=== PATIENT | female | born 1990 | race Caucasian/White ===

== ENCOUNTER 2017-11-27 19:30 | Inpatient (IN) | payer OTHER ==
[2017-11-27] MEDS ORDERED: HALOPERIDOL LACT 5 MG/ML INJ ONE (20:02)
[2017-11-27] MEDS ORDERED: LORazepam 2 MG/ML INJ ONE (20:07)
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
[2017-11-27] MEDS ORDERED: HALOPERIDOL LACT 5 MG/ML INJ IVP ONE ×3 (20:22→20:58)
[2017-11-27] MEDS ORDERED: LORazepam 2 MG/ML INJ IVP ONE ×2 (20:23→20:54)
[2017-11-27 20:25] LABS: PLATELET COUNT 271 10^3/uL (150-400)
[2017-11-27] MEDS ORDERED: KETAMINE 200 MG/20 ML VIAL IVP ONE (21:39)
[2017-11-27] MEDS ORDERED: KETAMINE 500 MG/10 ML VIAL IVP ONE (22:30)
[2017-11-27] MEDS ORDERED: ONDANSETRON 4 MG/2 ML VIAL IVP PRN (23:46)
[2017-11-27] MEDS ORDERED: ONDANSETRON DISINTEGRATING 4 MG TAB PO PRN (23:46)
[2017-11-28] MEDS ORDERED: ACYCLOVIR 600 MG in D5W 100 ML IV ONE (00:04)
[2017-11-28] MEDS ORDERED: NS 500 ML IV PRN (00:58)
[2017-11-28] MEDS: DEXMEDETOMIDINE IN 0.9 % NACL 100 ML IV SCH ×3 (01:47→18:33)
[2017-11-28] MEDS ORDERED: LORazepam 2 MG/ML INJ ONE (02:03)
[2017-11-28] MEDS ORDERED: HALOPERIDOL LACT 5 MG/ML INJ ONE (02:03)
--- NOTE | 2017-11-28 02:47 | PDGENHP ---
History and Physical - Chief Complaint Agitation - History of Present Illness 27 yo F w/ hx of migraines p/w severe agitation. Patient was in [place] with her mother when she began to experience unusual symptoms. On Thursday 11/16 she developed L arm tingling. This was followed by visual disturbances, severe headache, and photophobia. She presented to a local hospital where she was diagnosed with migraines. She has had migraines since a young age, but her usual migraines are much more mild and usually resolve with ibuprofen, per her mother. She had recurrence of the same constellation of symptoms (arm tingling, visual disturbance (aura?), severe headache, and photophobia on 11/20 and again went to a local hospital. There she underwent a CT scan and neurologist evaluation, who again diagnosed migraines. Over the following few days similar symptoms waxed and waned until she returned to the [place] yesterday evening. This morning her parents state she woke up doing well and was her usual self. They deny any mood abnormality, thought disturbance, or hallucinations. In the afternoon she began to have the same cluster of symptoms (arm tingling, aura, headache, photophobia). On the way to the hospital, however, she developed severe agitation. Patient was so agitated that she required Haldol 15 mg IV, Ketamine 200 mg IV, and Lorazepam 3 mg IV to control her aggression. Patient was minimally responsive to outside stimuli during this period. Her parents deny any recent illness or sick contacts. They also deny new medications(aside from sumatriptan prescribed in [place]) and knowledge of any drug use. She has had no prior episodes in the past. History Information - Allergies/Home Medication List Allergies/Adverse Reactions: No Known Allergies Allergy (Verified 11/27/17 23:11) Home Medications: Cyclizine 11/28/17 [Last Taken Unknown] Dihydrocodeine 11/28/17 [Last Taken Unknown] Naproxen 11/28/17 [Last Taken Unknown] Omeprazole 11/28/17 [Last Taken Unknown] Paracetamol 11/28/17 [Last Taken Unknown] SUMAtriptan 11/28/17 [Last Taken Unknown] I have personally reviewed and updated: family history, medical history - Past Medical History migraines - Surgical History Reports: no pertinent surgical hx - Family History Additional family history: Migraines in mother and sister - Social History Smoking Status: Never smoked Review of Systems Review of Systems: ROS: 10pt was reviewed & negative except for what was stated in HPI & below Physical Exam Physical Exam: Temp Pulse Resp BP Pulse Ox 36.7 C 82 16 110/70 92 11/27/17 19:54 11/28/17 00:00 11/28/17 00:00 11/28/17 00:00 11/28/17 00:00 Constitutional: appears nourished, other (Sedated, intermittend bouts of agitation) Eyes: PERRL, anicteric sclera Ears, Nose, Mouth, Throat: moist mucous membranes, no oral mucosal ulcers Cardiovascular: no murmur, rub, or gallop, tachycardia Respiratory: no respiratory distress, clear to auscultation Gastrointestinal: normoactive bowel sounds, soft, non-tender abdomen Skin: warm, normal color Musculoskeletal: full muscle strength, no joint effusions Neurologic: other (Sedated, intermittently agitated), No weakness Psychiatric: encephalopathic, agitated Lab Data & Imaging Review 11/27/17 20:14 11/27/17 20:14 WBC 8.09 10^3/uL (3.80-9.50) 11/27/17 20:14 RBC 4.94 10^6/uL (4.18-5.33) 11/27/17 20:14 Hgb 15.5 g/dL (12.6-16.3) 11/27/17 20:14 Hct 43.3 % (38.0-47.0) 11/27/17 20:14 MCV 87.7 fL (81.5-99.8) 11/27/17 20:14 MCH 31.4 pg (27.9-34.1) 11/27/17 20:14 MCHC 35.8 g/dL (32.4-36.7) 11/27/17 20:14 RDW 11.1 % (11.5-15.2) L 11/27/17 20:14 Plt Count 271 10^3/uL (150-400) 11/27/17 20:14 MPV 10.8 fL (8.7-11.7) 11/27/17 20:14 Neut % (Auto) 32.6 % (39.3-74.2) L 11/27/17 20:14 Lymph % (Auto) 55.5 % (15.0-45.0) H 11/27/17 20:14 Ness % (Auto) 9.4 % (4.5-13.0) 11/27/17 20:14 Eos % (Auto) 2.2 % (0.6-7.6) 11/27/17 20:14 Baso % (Auto) 0.2 % (0.3-1.7) L 11/27/17 20:14 Nucleat RBC Rel Count 0.0 % (0.0-0.2) 11/27/17 20:14 Absolute Neuts (auto) 2.63 10^3/uL (1.70-6.50) 11/27/17 20:14 Absolute Lymphs (auto) 4.49 10^3/uL (1.00-3.00) H 11/27/17 20:14 Absolute Monos (auto) 0.76 10^3/uL (0.30-0.80) 11/27/17 20:14 Absolute Eos (auto) 0.18 10^3/uL (0.03-0.40) 11/27/17 20:14 Absolute Basos (auto) 0.02 10^3/uL (0.02-0.10) 11/27/17 20:14 Absolute Nucleated RBC 0.00 10^3/uL (0-0.01) 11/27/17 20:14 Immature Gran % 0.1 % (0.0-1.1) 11/27/17 20:14 Immature Gran # 0.01 10^3/uL (0.00-0.10) 11/27/17 20:14 Sodium 143 mEq/L (135-145) 11/27/17 20:14 Potassium 3.9 mEq/L (3.3-5.0) 11/27/17 20:14 Chloride 100 mEq/L (97-110) 11/27/17 20:14 Carbon Dioxide 18 mEq/l (22-31) L 11/27/17 20:14 Anion Gap 25 mEq/L (8-16) H 11/27/17 20:14 BUN 9 mg/dL (7-23) 11/27/17 20:14 Creatinine 0.9 mg/dL (0.6-1.0) 11/27/17 20:14 Estimated GFR > 60 11/27/17 20:14 Glucose 101 mg/dL (70-100) H 11/27/17 20:14 Calcium 9.6 mg/dL (8.5-10.4) 11/27/17 20:14 Beta HCG, Qual NEGATIVE 11/27/17 20:14 Urine Color PALE YELLOW 11/27/17 23:00 Urine Appearance CLEAR 11/27/17 23:00 Urine pH 5.0 (5.0-7.5) 11/27/17 23:00 Ur Specific [place] 1.004 (1.002-1.030) 11/27/17 23:00 Urine Protein NEGATIVE (NEGATIVE) 11/27/17 23:00 Urine Ketones NEGATIVE (NEGATIVE) 11/27/17 23:00 Urine Blood NEGATIVE (NEGATIVE) 11/27/17 23:00 Urine Nitrate NEGATIVE (NEGATIVE) 11/27/17 23:00 Urine Bilirubin NEGATIVE (NEGATIVE) 11/27/17 23:00 Urine Urobilinogen NEGATIVE EU (0.2-1.0) 11/27/17 23:00 Ur Leukocyte Esterase NEGATIVE (NEGATIVE) 11/27/17 23:00 Urine RBC 1-3 /hpf (0-3) 11/27/17 23:00 Urine WBC 0-1 /hpf (0-3) 11/27/17 23:00 Ur Epithelial Cells NONE SEEN /lpf (NONE-1+) 11/27/17 23:00 Urine Glucose NEGATIVE (NEGATIVE) 11/27/17 23:00 CSF Tube Number 4 11/27/17 23:16 CSF Appearance CLOUDY (CLEAR) H 11/27/17 23:16 CSF Color PINK (COLORLESS) H 11/27/17 23:16 CSF Supernatant COLORLESS (COLORLESS) 11/27/17 23:16 CSF WBC 128 /mm3 (0-5) H 11/27/17 23:16 CSF RBC 8629 /mm3 (0-0) H 11/27/17 23:16 CSF Neutrophils % 14 % (0-6) H 11/27/17 23:16 CSF Lymphocytes % 78 % (0-100) 11/27/17 23:16 CSF Monos/Macrophage % 7 % (0-45) 11/27/17 23:16 CSF Glucose 49 mg/dL (50-75) L 11/27/17 22:46 CSF Total Protein 99 mg/dL (12-60) H 11/27/17 22:46 Salicylates < 1.0 mg/dL (2.0-20.0) L 11/27/17 20:14 Urine Opiates Screen NON-NEGATIVE (NEGATIVE) H 11/27/17 23:00 Acetaminophen < 10 mcg/mL (10-30) L 11/27/17 20:14 Urine Barbiturates NEGATIVE (NEGATIVE) 11/27/17 23:00 Ur Phencyclidine Scrn NEGATIVE (NEGATIVE) 11/27/17 23:00 Ur Amphetamine Screen NEGATIVE (NEGATIVE) 11/27/17 23:00 U Benzodiazepines Scrn NEGATIVE (NEGATIVE) 11/27/17 23:00 Urine Cocaine Screen NEGATIVE (NEGATIVE) 11/27/17 23:00 U Marijuana (THC) Screen NEGATIVE (NEGATIVE) 11/27/17 23:00 Ethyl Alcohol < 10 mg/dL (0-10) 11/27/17 20:14 Imaging Review: Imaging Impressions Chest X-Ray 11/27/17 20:17 Impression: Hypoventilatory chest with mild basilar atelectasis. Head CT 11/27/17 20:18 Impression: No acute intracranial findings. Findings discussed with PAULO ROSARIO 11/27/2017 at 22:28. Visualized and Interpreted Chest x-ray results: Yes Chest X-Ray results: other (Basilar atelectasis) Assessment & Plan Assessment: 27 yo F w/ hx of migraines presents with severe agitation. Plan: 1. Acute encephalopathy - Unclear etiology; patient has been having new migraine symptoms (different from prior migraines) for about 11 days. Her symptoms follow a pattern of arm tingling, visual disturbance, severe headache, and photophobia. On the day of admission, however, this constellation of symptoms was followed by severe agitation requiring Haldol 15 mg IV, Ketamine 200 mg IV, and Lorazepam 3 mg IV to control her aggression. CT Head was unremarkable. LP was notable for 128 WBCs, 8k RBC's and elevated protein; LP was reported as traumatic. Considerations for etiology include: complex migraine , seizure, and encephalitis (infectious vs. autoimmune (anti-NMDA?). - Admit to ICU for close observation - Acyclovir IV for possibility of viral encephalitis - ID consulted, appreciate assistance - Will send HSV PCR, West nile PCR, and NMDA antibodies on CSF - Neurology consult placed - EEG ordered - Patient will need a brain MRI but this may need to be coordinated with conscious sedation so will defer until the morning - Precedex gtt for agitation overnight Diet - NPO Code - Full Ppx - SCDs Dispo - Admit under inpatient status
[2017-11-28 05:44] LABS: PLATELET COUNT 178 10^3/uL (150-400)
[2017-11-28] MEDS: ACYCLOVIR 600 MG in D5W 100 ML IV SCH ×3 (07:55→22:00)
--- NOTE | 2017-11-28 09:37 | ASMTCMCOM ---
CM Note CM Note Notes: 27yr old female admitted for Severe migraine, Encephalopathy. She was recently travelling with her mother in [place] where she was hospitalized with similar dx. ID and neurology to consult. CM to follow. Date Signed: 11/28/2017 09:36 AM Electronically Signed By:Neli Gasca LCSW
[2017-11-28] MEDS: methylPREDNISolone SOD SUCC 1 GM in D5W 100 ML IV SCH (10:19)
--- NOTE | 2017-11-28 10:26 | BCON ---
[f rep st] BEHAVIORAL HEALTH CONSULTATION NEUROLOGY CONSULTATION REFERRING PHYSICIAN: Dalton Rosenbaum MD HISTORY: The patient is a 27-year-old woman who I am asked to see in neurologic consultation janellei ng altered mental state. History is obtained from the patient's family, who were good historians as well as review of the history and physical. Basically, they were touring [place] and 11 days ago, alhjai adair started having episode of significant headache with some light and sound sensitivity and went to [facility] for evaluation and was told she probably had migraine. Further workup continued over the next few weeks as she had recurrent symptoms and never really felt completely back to normal in betw een episodes where she had light and sound sensitivity and went back to the hospital twice again macy carlson treated for presumed migraine and ultimately was flying back to the [place] 2 days ago and ca me back and was a little bit better, but then became significantly worse yesterday with confusion, ag itation, increasing pain and came to the hospital in a state where she was so agitated that she neede d ketamine, lorazepam and Haldol to help calm her. She does have a history of migraine, but nothing like this in the past. Since hospitalization here, she has not had fever nor has any fever been docu mented during this time frame. Spinal fluids shows some mild inflammatory changes consistent with ei ther meningitis or encephalitis, and she was requiring Precedex to keep calm. PAST MEDICAL HISTORY: Otherwise unremarkable. Please see the history and physical for further detai ls. She has no history of drug use or alcohol abuse. No chronic illnesses. PHYSICAL EXAMINATION: VITAL SIGNS: Currently, the blood pressure is 99/60, pulse of 62, respiration s 17, temperature 36.8. GENERAL: She is well developed in no acute distress. Mild complaints of pa in when I move her head, but not prominent neck pain. No rigidity. She is on some sedation, but as that is held, she awakens enough to open her eyes to her name, although this is unsustained. She rosalva l follow most simple commands but has some impersistence. HEENT: Pupils are pinpoint. Extraocular movements seem to be intact. No obvious facial asymmetry. She has some orientation to being in the hospital and she can tell me her name. She was not able answer the city or the state. She is not ac utely agitated, but did start to become a little more restless after several minutes. No overt clini juan seizure activity evident. When she was speaking, she had a tendency to perseverate on some words consistent with a mild expressive aphasia. Motor exam: Normal muscle bulk and tone, with a tendenc y to drop the right arm more than the left suggesting there might be a little weakness on the right s josue, but that was inconsistent and not clearly asymmetric in the lower extremities. Reflexes are 2+. Bilateral upgoing toes to plantar stimulation. Sensation seems to be intact for at lease localizat ion. DIAGNOSTIC STUDIES: I have reviewed her diagnostic studies which include an unremarkable head CT. LABORATORY STUDIES: White count currently 10,000. Chemistries unremarkable. The CSF on tube 4 yest mitch had 128 white cells and 8000 red cells, 78% lymphocytes, glucose of 49, protein of 99. CSF, HI V, and West Nile virus are pending and I believe antibodies for NMDA receptor antibodies pending. To x screen was notable for some opioids in the system but she had received that and the miscellaneous t esting that was sent is anti-NMDA receptor antibody. IMPRESSION: The patient has a syndrome of fluctuating headaches and agitation and some migrainous fe atures but at this point appears entirely consistent with an encephalitis and our #1 differential robert gnosis at this point is NMDA receptor mediated autoimmune encephalitis for which she will be started on high-dose IV steroids. Acyclovir is continuing for now and we will monitor her mental state, whmadelyn h is getting a little bit better this morning. I had a detailed discussion with the family. Total unit time of 70 minutes with greater than 50% of time counseling and coordination of care for t his acutely ill individual. She is not clinically having seizures so we will see how she does and ca n obtain EEG as needed if it becomes more equivocal, but she does not require anticonvulsant therapy at this point. /[id number]/MODL
[2017-11-28] MEDS: D5W 1/2 NS 1,000 ML IV SCH ×2 (11:32→22:00)
--- NOTE | 2017-11-28 11:49 | PDMN ---
Medical Necessity Medical necessity: MCG: M185 Headaches: A-1 day: AMS, with photophobia, arm tingling, visual disturbances, severe agitation, req IV Haldol, ketamine, lorazepam, neuro consult- encephalitis abnormal lumbar puncture, , ID consult pend., pend labs, pt will be NPO with further monitoring and tx needed.
--- NOTE | 2017-11-28 16:08 | GCON ---
[f rep st] CONSULTATION INPATIENT INFECTIOUS DISEASE CONSULTATION REFERRING PHYSICIAN: Willy Atkinson MD REASON FOR REFERRAL: Encephalitis. HISTORY OF PRESENT ILLNESS: Patient is a 27-year-old female who is normally in very good health and has no past medical history apart from a very mild migraine syndrome that was occasional, but not sig nificant, who was traveling with her parents in [place] approximately 11 days ago. The patient star jim having significant headaches with increased light sensitivity and woke up with feelings of periph eral neuropathy and pins and needles in her arms and hands. She went to medical clinics and hospital in [place] over those 10 days that she was in that country and kept getting treated for headache a nd migraine diagnosis. She improved somewhat, but never improved completely. The patient's mother r elated that she had a miserable flight back to the [place] 2 days ago, but when she was here in [place] after arriving at [facility] on Tuesday night, she was symptomatically somewhat better. She woke up Tuesday morning feeling well, but became significantly worse in the latter part of the afternoon w ith agitation, confusion, and increasing headache. The patient's presentation to the emergency room was very dramatic, and her agitation was so great that she required Haldol, lorazepam, and ketamine f or sedation. Her CT scan of her head was normal. She had a lumbar puncture, which showed a mild ple ocytosis in the emergency room. She was placed on IV acyclovir empirically. Her parents deny that s he had any fevers or chills throughout this prodromal illness. Currently, she is having difficulty n aming the city that she is in. She does know that she is in a hospital and is able to recognize her own name and repeat it. PAST MEDICAL HISTORY: Essentially negative. PAST SURGICAL HISTORY: None noted. SOCIAL HISTORY: No tobacco or significant alcohol use. No drug use noted. FAMILY HISTORY: Reviewed, but noncontributory. ANTIBIOTICS: Acyclovir. ALLERGIES: No known drug allergies. REVIEW OF SYSTEMS: Other than that detailed above in History of Present Illness, comprehensive 10-sy stem review is negative as per the parents. Patient's mental status situation does not allow her to deliver her own review. PHYSICAL EXAMINATION: VITAL SIGNS: Temperature maximum is 37.2, temperature current is 37.0. Heart rate is 68. Respiratory rate is 16. Blood pressure is 100/60. GENERAL: The patient is a well-for med, well-nourished young female in no acute distress. She is not toxic in appearance. She is fairl y sedated, but will awaken occasionally. She is alert at times, oriented to person, but not to place or time. She is pleasant, although confused. HEENT: Normocephalic for age. Atraumatic. No scler al icterus. No oral lesion or drainage from the nares. Eyes, lids, and conjunctiva are within normal limits. Pupils are equal and round bilaterally. NECK: Supple. No obvious meningismus. LUNGS: Clear to auscultation bilaterally with good effort. HEAR T: Regular rate and rhythm. No murmur, rub, or gallop noted. No significant peripheral edema. SKI N: Warm and dry to the touch. No rash or lesion noted. MUSCULOSKELETAL: No muscle belly tendernes s is noted. No joint line effusion or arthritis is seen. NEURO: Cranial nerves 2-12 seem to be int act. The patient does seem to have an element of right-sided neglect or strength loss in both the up per and lower extremities. She has difficulty following commands and has difficulty verbalizing and finding vocabulary. LABORATORY DATA: Patient has a CBC dated 11/28/2017, shows white blood cell count of 10.5, hemoglobi n 13.5, hematocrit 38.2, and a platelet count of 178. Differential is within normal limits. Serum c hemistries on 11/28/2017, show sodium 141, potassium 4.7, chloride of 104, bicarbonate 25, BUN of 8, and creatinine of 0.7. AST is 29. ALT is 50. Urinalysis is within normal limits. Spinal fluid yudy ues tube 1 shows 52,000 red cells and 217 white cells. Tube 4 shows 8600 red cells and 128 white carrie ls. Both samples show a lymphocytic predominance. Glucose level is 49. Total protein level is 99. HSV PCR as well as the West Nile antibodies in the CSF were pending. Salicylate, acetaminophen, and alcohol levels are nondetectable. MICROBIOLOGIC DATA: Patient has spinal fluid cultures dated 11/27/2017, which show no organisms on t he Gram stain, 4+ mononuclear white cells, and 1+ PMNs. ASSESSMENT: Encephalitis without fever or leukocytosis in the circulating blood. Given the long sta ge of prodromal and waxing and waning symptoms, I suspect that this is unlikely to be infectious in e tiology. 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 I agree with Neurology that steroid s hould be instituted. We will send autoimmune panels from the spinal fluid to try to help establish a definitive diagnosis. In the meantime, will continue acyclovir for another day until the herpes sim plex virus PCR is returned as negative. PLAN: 1. Testing as above. 2. Empiric acyclovir to continue until HSV PCRs are returned. 3. Follow clinical course. /[id number]/MODL
--- NOTE | 2017-11-28 18:45 | HOSPPROG ---
Hospitalist Progress Note Assessment/Plan: Assessment: 27 yo F p/w acute encephalopathy 2/2 suspected encephalitis Plan: 1. Acute encephalopathy. Evidenced by global brain dysfunction characterized as severe agitation, disorientation, and non-directible behavior, all of which is an acute change from her baseline, and 2/2 suspected metabolic effects of encephalitis -required aggressive mgmt last PM w/ precedex gtt, currently lowering rate to gauge effect -patient currently AAOx2 (person and place, not time) but remains somnolent, alert to verbal stimuli -attempt to avoid longer acting sedatives, so as to gauge her improvement w/ tx of encephalitis 2. Suspected acute encephalitis. Viral vs. autoimmune w/ NMDA receptor antagonist w/ co-morbid severe headache -CSF w/ high protein, low gluc, WBC w/ lymphocyte predominance -d/w Dr. Leiva, recommends empiric tx w/ Acyclovir until HSV labs returned, cont on IVF -appreciate consult by Dr. Waldrop, recommends paraneoplastic labs/NMDA receptor Ab from CSF -d/w lab, we have 0.9ml of CSF for send-out labs (total test minimum volume 1.4ml), prioritized NMDA receptor Ab to [facility] (0.5ml), [facility] to [facility] ([facility]) , and remaining 0.3ml will attempt paraneoplastic labs and WNV -if there is not enough volume for sample, may require additional LP -EEG if mental status not improving -IV steroids for possible autoimmune component -US abd wnl 3. Atelectasis. Acute, 2/2 immobility, IS when able 4. Metabolic acidosis. Acute, 2/2 above, monitor j Diet - As krystal, bedside swallow eval Code - Full Ppx - SCDs Dispo - ADD uncertain, remains critically ill 35 minutes of critical care time spent on patient, at bedside w/ family summarizing/treating above, coordinating w/ providers above and lab, specifically treating her suspected encephalitis which renders her critically ill w/ high risk of worsening morbidity. Subjective: patient intermittently interactive to voice Objective: Vital Signs Temp Pulse Resp BP Pulse Ox 37.1 C 68 10 L 99/51 L 97 11/28/17 18:00 11/28/17 18:00 11/28/17 18:00 11/28/17 18:00 11/28/17 18:00 Laboratory Results 11/28/17 05:20 11/28/17 05:20 11/27/17 11/28/17 11/29/17 05:59 05:59 05:59 Intake Total 164.4 1970 Output Total 825 Balance 164.4 1145 - Physical Exam Constitutional: not in pain, No uncomfortable Eyes: PERRL, anicteric sclera Cardiovascular: regular rate and rhythym, no murmur, rub, or gallop Respiratory: no respiratory distress, no rales or rhonchi, clear to auscultation Gastrointestinal: normoactive bowel sounds, soft, non-tender abdomen, no palpable masses Skin: No rash Musculoskeletal: other (no meningismus or pain on rotation of neck) Neurologic: sensation intact bilaterally, other (AAOx2), No weakness (motor 5/5 bilat UE/LE) Psychiatric: not anxious, encephalopathic, flat affect, poor insight, poor memory, No agitated ICD10 Worksheet Patient Problems: Problems Problem Status Onset Encephalitis Acute Altered mental status Acute
[2017-11-28] MEDS ORDERED: SUMAtriptan 50 MG TAB PO PRN (18:47)
[2017-11-29] MEDS ORDERED: LORazepam 1 MG TAB PO PRN (11:00)
[2017-11-29] MEDS ORDERED: HYDROmorphONE/DILAUDID 2 MG TAB PO PRN (11:00)
[2017-11-29] MEDS ORDERED: HYDROmorphONE/DILAUDID 1 MG/ML INJ IVP PRN (11:00)
[2017-11-29 20:55] LABS: PLATELET COUNT 230 10^3/uL (150-400)
--- NOTE | 2017-11-29 21:22 | PCMIDPN ---
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 Also no fever. Interestingly patient also with a mildly elevated protein and a mildly depressed glucose. Certainly with component of agitation with initial presentation HSV seems within realm of possibilities. Neurology considering autoimmune process related to NMDA receptor antagonist --continue acyclovir for now. --await HSV PCR, doubt false negative due to duration of symptom prior LP --if symptoms worsening have to broaden ddx to meningoencephalitis due to arbovirues. Discussed need for repeat LP to further w/u due to small CSF sample. Also if symptom worsening could consider contrasted MRI --HIV screen #Leukocytosis: likely related to steroids meds Acyclovir 600mg IV q8 #1 methylpred micro 11/27 CSF gram stain neg; cx pending; HSV 1/2 PCR pending Subjective: patient and family endorse significant improvement, headache much less, agitation much improved, patient is now conversational. She still has significant light sensitivity. Reviewed patients history. Interestingly, increased problems with headache pre dated travel to [place] but while there sought medical care multiple times due to severity of her headache with light sensitivity. Interestingly she spent last year hiking over 1000 miles of the [facility]. Denies every recognizing a tick bite. In addition, did not recognize tick or mosquito bites while in [place] or prior in [place]. 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 Denies specific sick contact. She is heterosexual and last had sex 07/2017. Denies perioral or genital HSV in the past. Describes R TMJ pain that is now resolved. No rashes, no joint pain. No recent dental work. She has a progesterone IUD. Objective: Vital Signs Temp Pulse Resp BP Pulse Ox 36.9 C 52 L 16 91/56 L 95 11/28/17 20:00 11/29/17 00:00 11/29/17 00:00 11/29/17 00:00 11/29/17 00:00 Laboratory Results 11/29/17 04:50 11/29/17 04:50 11/28/17 11/29/17 11/30/17 05:59 05:59 05:59 Intake Total 164.4 1970 Output Total 1275 Balance 164.4 695 36.9 C 52 L 16 91/56 L 95 Labs: Creatinine 0.7, WBC 17 ( 84% neutrophils); CSF WBC 128 (14% neutrophils , 78% lymphocytes), protein 99, glucose 49 Gen: young woman, NAD HEENT: MMM, good dentition Neck : no meningismus Cardiovascular bradycardic Chest: Clear to auscultation bilaterally Abdomen: Soft nontender bowel sounds present Extremities: no joint swelling , no lower extremity edema Skin: No rashes Neuro: Strength intact except small decrease in medical officer psychiatry strength left hand, cranial nerves grossly intact, alert and oriented x4 with fluent speech - Time Spent With Patient Time Spent with Patient: greater than 35 minutes Time Spent with Patient: Greater than 35 minutes spent on this patients care, greater than 50% of time spent counseling, educating, and coordinating care regarding the above mentioned plan. ICD10 Worksheet Patient Problems: Problems Problem Status Onset Altered mental status Acute Encephalitis Acute
--- NOTE | 2017-11-29 22:30 | GCON ---
[f rep st] CONSULTATION CRITICAL CARE CONSULT DATE OF CONSULTATION: 11/29/2017 HISTORY OF PRESENT ILLNESS: This patient is a 27-year-old female with a history of migraines who is otherwise quite healthy, was traveling in the [place] when she developed a headache but also left arm ting ling, which is atypical for her. She also had visual disturbances and photophobia. She went to [facility] in [place] and was treated for migraines, but they did not resolve very well. [place]ned [place] and came here to be evaluated and when she arrived she became very agitated, which i s unusual for her, and required 15 mg of Haldol as well as ketamine and lorazepam to control her symp toms. She underwent a lumbar puncture which showed a high level of protein but no bacteria. There w ere also some red cells and white cells that were difficult to interpret. 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 She was given Solu-Medrol at a gram a day and observed in the intensive care unit overnight. At the time of my exam, she was feeling quite well. She still had photophobia but was calm and relaxed. She was on a Precedex drip overnight and this was turned off a good 2 hours be fore I had observed her. She said that she had a minor headache that was coming and going, but other rodriguez really felt well. No nausea or vomiting and no further episodes of severe agitation. REVIEW OF SYSTEMS: Otherwise negative. PAST MEDICAL HISTORY: Includes migraines as described above. SURGICAL HISTORY: She has had no surgeries in the past. FAMILY HISTORY: Includes migraines in her mother and her sister. SOCIAL HISTORY: She is a nonsmoker. No significant alcohol or IV drug use. HOME MEDICATIONS: Include cyclizine dihydrocodeine, Naprosyn, omeprazole, paracetamol and sumatripta n which was recently taken. PHYSICAL EXAM: VITAL SIGNS: She was afebrile. Vital signs were stable. She was saturating above 9 0% on room air. GENERAL: She is very pleasant woman in no apparent distress. She spoke in full sen tences without using accessory muscles for breathing, was alert and oriented x4. HEENT: Pupils are equally round and reactive to light, nonicteric and noninjected. Mucous membranes are moist without erythema or exudate. NECK: Supple without adenopathy or jugular vein distention. She did report mi nor stiffness when she was flexing her neck forward, but this was very mild. LUNGS: Breath sounds w ere clear to auscultation bilaterally without wheeze or rales. HEART: Regular rate and rhythm witho ut murmurs, rubs, gallops. ABDOMEN: Soft, nontender, nondistended without hepatosplenomegaly. EXTR EMITIES: No clubbing, cyanosis, or edema. NEUROLOGIC: Nonfocal, including cranial nerves and deep tendon reflexes. Objective data includes the CSF findings as described above. Her white count on admission was actual ly unremarkable. She had an abdominal ultrasound as well as pelvis ultrasound looking for teratomas, but none were found. ASSESSMENT/PLAN: Encephalitis of uncertain etiology as described above. It could be viral and it co uld be NMDA encephalitis. The appropriate antibodies were sent off and are pending. She seems to whitaker ve recovered very well with the high-dose steroids. At this time, we will continue to observe her, b ut I think she can probably downgrade to at least CATRACHITA status and possibly the floor depending on whet her or not she has recurrences of significant encephalitis or not. /[id number]/MODL
[2017-11-30] MEDS: PANTOPRAZOLE SODIUM 40 MG TAB PO SCH ×2 (05:06→08:21)
[2017-11-30] MEDS: ACYCLOVIR 600 MG in D5W 100 ML IV SCH ×3 (05:06→14:01)
[2017-11-30] MEDS: methylPREDNISolone SOD SUCC 1 GM in D5W 100 ML IV SCH ×2 (05:06→08:21)
[2017-11-30 07:08] LABS: HIV TYPE 1 AND 2 NEGATIVE (NEGATIVE)
--- NOTE | 2017-11-30 08:43 | NEUROPROG ---
Assessment: Today's 25 min unit time was predominantly counseling regarding her condition and management strategies moving forward. For now we will continue the IV steroids and the acyclovir and await CSF results for further guidance as well as her clinical course which currently is going very much in the right direction. Once results are back, we can make decisions on discharge which might be as soon as the end of the week with conversion perhaps oral steroids. I will continue the IV steroids for now. Subjective: The patient says that she continues to feel better every day with minimal headache and no significant neck pain. She has no prominent light sensitivity this morning sitting in the light without sunglasses. She had some trouble sleeping because of steroid effects most likely but otherwise is doing well. Objective: Vital Signs Temp Pulse Resp BP Pulse Ox 36.9 C 81 12 101/46 L 96 11/30/17 08:00 11/30/17 08:00 11/30/17 08:00 11/30/17 08:00 11/30/17 08:00 Laboratory Results 11/29/17 04:50 11/29/17 04:50 11/29/17 11/30/17 12/01/17 05:59 05:59 05:59 Intake Total 1970 700 Output Total 1275 Balance 695 700 She is alert and attentive and oriented without any prominent cognitive problems other than a little haziness on the recent events. She is smiling and feels comfortable. No new lab results her report. Allergies/Adverse Reactions: No Known Allergies Allergy (Verified 11/27/17 23:11)
--- NOTE | 2017-11-30 08:56 | PDINTPN ---
Acid [facility]anger Progress Note Assessment/Plan: 27 F with history of migraines presented with atypical symptoms while travelling in [place]. Treated while there with imitrex without resolution of symptoms. [place] became very agitated and required ketamine, ativan in ED. LP showed 128 WBS with 8ooo RBCs, marginally low glu (49) and elevated protein (99). Gram stain and culture negative but started acyclovir and high dose steroids for concerns about anti-NMDA mediated autoimmune encephalitis. * Encephalitis. antibodies remain pending but she has had a remarkable recovery and feels great today. Ongoing antivirals and steroids per neurology * MS change 2/2 above- resolved * * OK for floor Subjective: feels better. Self-limited and brief neck pain yesterday (tylenol) and less photophobia. Feels "nearly normal" except disrupted sleep Objective: Vital Signs Temp Pulse Resp BP Pulse Ox 36.9 C 81 12 101/46 L 96 11/30/17 08:00 11/30/17 08:00 11/30/17 08:00 11/30/17 08:00 11/30/17 08:00 Laboratory Results 11/29/17 04:50 11/29/17 04:50 11/29/17 11/30/17 12/01/17 05:59 05:59 05:59 Intake Total 1970 700 Output Total 1275 Balance 695 700 Physical Exam - Physical Exam General Appearance: WD/WN, alert, no apparent distress EENT: PERRL/EOMI, normal ENT inspection Neck: non-tender, full range of motion, supple, normal inspection, No lymphadenopathy (R), No lymphadenopathy (L), No Kernig's sign, No Brudzinski's sign Respiratory: lungs clear, normal breath sounds, No respiratory distress, No accessory muscle use Cardiac/Chest: regular rate, rhythm, No edema Abdomen: non-tender, soft, No distended Skin: normal color, warm/dry, No cyanosis Lymphatic: no adenopathy Extremities: No pedal edema Neuro/Psych: no motor/sensory deficits, alert, normal mood/affect, oriented x 3 , No abnormal track mechanic II-XII, No motor weakness, No cognition abnormalities ICD10 Worksheet Patient Problems: Problems Problem Status Onset Altered mental status Acute Encephalitis Acute
[2017-11-30] MEDS: IBUPROFEN 200 MG TAB PO PRN ×2 (09:05→16:44)
--- NOTE | 2017-11-30 09:42 | PCMIDPN ---
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 Neurology considering autoimmune process related to NMDA receptor antagonist, doubt infectious etiology with such rapid improvement --continue acyclovir for now. --await HSV PCR, doubt false negative due to duration of symptom prior LP --check Cr in AM in light of acyclovir --screen HIV --if unable to find etiology with current studies will have to repeat LP #Leukocytosis: likely related to steroids, not rechecked today meds Acyclovir 600mg IV q8 #2 methylpred micro 11/27 CSF gram stain neg; cx pending; HSV 1/2 PCR pending Subjective: improved, describing side effect of steroids, jittery and difficult sleeping Objective: Vital Signs Temp Pulse Resp BP Pulse Ox 36.9 C 81 12 101/46 L 96 11/30/17 08:00 11/30/17 08:00 11/30/17 08:00 11/30/17 08:00 11/30/17 08:00 Laboratory Results 11/29/17 04:50 11/29/17 04:50 11/29/17 11/30/17 12/01/17 05:59 05:59 05:59 Intake Total 1970 700 Output Total 1275 Balance 695 700 Gen: young woman, NAD HEENT: MMM, good dentition Neck : no meningismus Chest: breathing easy Extremities: no joint swelling , no lower extremity edema Skin: No rashes Neuro: alert and oriented x4 with fluent speech, moving all 4 ext equally - Time Spent With Patient Time Spent with Patient: greater than 25 minutes Time Spent with Patient: Greater than 25 minutes spent on this patients care, greater than 50% of time spent counseling, educating, and coordinating care regarding the above mentioned plan. ICD10 Worksheet Patient Problems: Problems Problem Status Onset Altered mental status Acute Encephalitis Acute
[2017-11-30] MEDS: ACETAMINOPHEN 325 MG TAB PO PRN (14:03)
--- NOTE | 2017-11-30 14:59 | NEUROPROG ---
[facility] Patient Name: SILVIO MARTÍNEZ Rpt#: [id number] Unit Number: [id number] Attending/ER Physician: Dalton Rosenbaum MD Patient Type: ADM IN Adm Date/Source: 11/27/17 EMR Discharge Date: Primary Carrier: [employer] Documented by: Jayjay Waldrop MD on Date/Time:11/29/17945 Assessment: Total unit time of 25 minutes. Patient with suspected autoimmune vs. infectious encephalitis on day 2 of Solumedrol and Acyclovir. She is much improved today and will continue the meds for now and await CSF studies. Ok to go to floor. Subjective: Pt feeling better and still some light sensitivity Objective: Vital Signs Temp Pulse Resp BP Pulse Ox 36.9 C 52 L 16 91/56 L 95 11/28/17 20:00 11/29/17 00:00 11/29/17 00:00 11/29/17 00:00 11/29/17 00:00 Laboratory Results 11/29/17 04:50 11/29/17 04:50 11/28/17 11/29/17 11/30/17 05:59 05:59 05:59 Intake Total 164.4 3245 Output Total 2275 Balance 164.4 970 Now communicating and alert and smiling in sunglasses, amnestic for details of event. No longer agitated. Day 2 IV steroids. CSF results pending and issues reviewed. Allergies/Adverse Reactions: No Known Allergies Allergy (Verified 11/27/17 23:11) *This report may have been compiled using a voice recognition system, and might contain typographical errors and blanks.* Jayjay Waldrop MD 11/29/17949 <Electronically signed by Jayjay Waldrop MD> 5 T: MICKEY 11/29/17945 CC:
[2017-11-30] MEDS ORDERED: CEPACOL LOZENGE PO PRN (16:28)
--- NOTE | 2017-11-30 18:28 | HOSPPROG ---
Hospitalist Progress Note Assessment/Plan: Assessment: 27 yo F p/w acute encephalopathy 2/2 suspected encephalitis Plan: 1. Acute encephalopathy. Evidenced by global brain dysfunction characterized as severe agitation, disorientation, and non-directible behavior, all of which is an acute change from her baseline, and 2/2 suspected metabolic effects of encephalitis -resolved 2. Acute inflammatory encephalitis. Suspect autoimmune w/ NMDA receptor antagonist w/ co-morbid severe headache -CSF w/ high protein, low gluc, WBC w/ lymphocyte predominance -HSV neg, stop acyclovir and IVF -counseled patient and family that we are seeing substantial improvement w/ IV steroids and will d/w Dr. Waldrop whether we can transition to PO steroids tomorrow and duration of tx -agree w/ continuing tylenol/NSAID for low grade HARMON to prevent from escalation -counseled patient that using sleep aid tonight may be helpful, given steroid effect 3. Atelectasis. Acute, 2/2 immobility, IS when able 4. Metabolic acidosis. Acute, 2/2 above, monitor 5. Suspected URI. Patient developing rhinorrhea, tender lymph nodes, sinus congestion -tx supportively w/ mucinex/anti-histamine/lozenge Diet - Reg Code - Full Ppx - SCDs Dispo - ADD uncertain, 12/01 vs. 12/02 Subjective: less photophobia, poor sleep last night Objective: Vital Signs Temp Pulse Resp BP Pulse Ox 36.8 C 78 14 113/57 L 96 11/30/17 18:14 11/30/17 18:14 11/30/17 18:14 11/30/17 18:14 11/30/17 18:14 Laboratory Results 11/29/17 04:50 11/29/17 04:50 11/29/17 11/30/17 12/01/17 05:59 05:59 05:59 Intake Total 1970 700 Output Total 1275 Balance 695 700 - Time Spent With Patient Time Spent with Patient: greater than 35 minutes Time Spent with Patient: Greater than 35 minutes spent on this patients care, greater than 50% of time spent counseling, educating, and coordinating care regarding the above mentioned plan. - Physical Exam Constitutional: no apparent distress, appears nourished, not in pain Ears, Nose, Mouth, Throat: other (no sinus tenderness ethmoid or maxillary) Cardiovascular: regular rate and rhythym, no murmur, rub, or gallop Respiratory: no respiratory distress, no rales or rhonchi, clear to auscultation Neurologic: AAOx3, CN II-XII Intact Psychiatric: interacting appropriately, not anxious, not encephalopathic, thought process linear Lymph, Heme, Immunologic: other (mildly tender 2cm bilat submandibular LAD) ICD10 Worksheet Patient Problems: Problems Problem Status Onset Encephalitis Acute Altered mental status Acute
[2017-11-30] MEDS: guaiFENesin 600 MG TAB.ER PO SCH (21:16)
[2017-11-30] MEDS: CETIRIZINE 10 MG TAB PO SCH (21:16)
[2017-11-30] MEDS: traZODone 100 MG TAB PO SCH (21:17)
[2017-12-01] MEDS: ACETAMINOPHEN 325 MG TAB PO PRN ×2 (04:40→12:38)
[2017-12-01] MEDS: IBUPROFEN 200 MG TAB PO PRN ×2 (08:00→19:04)
[2017-12-01] MEDS: guaiFENesin 600 MG TAB.ER PO SCH ×2 (08:00→20:42)
[2017-12-01] MEDS: PANTOPRAZOLE SODIUM 40 MG TAB PO SCH (08:01)
[2017-12-01] MEDS: methylPREDNISolone SOD SUCC 1 GM in D5W 100 ML IV SCH (08:01)
--- NOTE | 2017-12-01 08:56 | NEUROPROG ---
Assessment: Today's 25 min unit time was predominantly counseling regarding her condition and management strategies moving forward. Off acyclovir for suspected autoimmune encephalitis. She is day 4/5 of IV solumedrol. Labs pending for diagnosis on CSF. If remains stable then she can complete last IV dose of steroid tomorrow afternoon and go home on PO and outpatient follow up with me. Subjective: Patient reports mild, dull headache at times and occassional neck pain but otherwise doing very well. No cognitive complaints Objective: Vital Signs Temp Pulse Resp BP Pulse Ox 36.4 C 76 16 117/81 H 95 12/01/17 08:00 12/01/17 08:00 12/01/17 08:00 12/01/17 08:00 12/01/17 08:00 Laboratory Results 11/29/17 04:50 12/01/17 04:20 11/30/17 12/01/17 12/02/17 05:59 05:59 05:59 Intake Total 700 250 Balance 700 250 Alert and smiling and normal neurologically Allergies/Adverse Reactions: No Known Allergies Allergy (Verified 11/27/17 23:11)
--- NOTE | 2017-12-01 11:56 | PCMIDPN ---
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 Doubt infectious etiology with such rapid improvement. Stopped acyclovir yesterday, planned dc tomorrow okay from ID standpoint meds methylpred micro 11/27 CSF gram stain neg; cx NGTD; HSV 1/2 PCR neg Subjective: mild HARMON slept much better last night Objective: Vital Signs Temp Pulse Resp BP Pulse Ox 36.4 C 69 16 113/67 96 12/01/17 08:57 12/01/17 08:57 12/01/17 08:57 12/01/17 08:57 12/01/17 08:57 Laboratory Results 11/29/17 04:50 12/01/17 04:20 11/30/17 12/01/17 12/02/17 05:59 05:59 05:59 Intake Total 700 250 Balance 700 250 - Physical Exam General Appearance: alert, no apparent distress Respiratory: No accessory muscle use Neuro/Psych: alert, normal mood/affect, oriented x 3, No motor weakness - Time Spent With Patient Time Spent with Patient: greater than 25 minutes Time Spent with Patient: Greater than 25 minutes spent on this patients care, greater than 50% of time spent counseling, educating, and coordinating care regarding the above mentioned plan. ICD10 Worksheet Patient Problems: Problems Problem Status Onset Altered mental status Acute Encephalitis Acute
--- NOTE | 2017-12-01 14:32 | ASMTCMCOM ---
CM Note CM Note Notes: Anticipate pt will DC with no needs.Cm available if needs change. Date Signed: 12/01/2017 02:31 PM Electronically Signed By:Ruth Cardenas LCSW
--- NOTE | 2017-12-01 17:45 | HOSPPROG ---
Hospitalist Progress Note Assessment/Plan: Assessment: 27 yo F p/w acute encephalopathy 2/2 suspected encephalitis Plan: 1. Acute encephalopathy. Evidenced by global brain dysfunction characterized as severe agitation, disorientation, and non-directible behavior, all of which is an acute change from her baseline, and 2/2 suspected metabolic effects of encephalitis -resolved 2. Acute inflammatory encephalitis. Suspect autoimmune w/ NMDA receptor antagonist w/ co-morbid severe headache -CSF w/ high protein, low gluc, WBC w/ lymphocyte predominance -HSV neg, stopped acyclovir and IVF -d/w Dr. Waldrop, he recommends 5 total days IV steroids given the density of her condition, then transition to PO steroids w/ outpt neuro f/u -agree w/ continuing tylenol/NSAID for low grade HARMON to prevent from escalation -sleep aid successful for patient 3. Atelectasis. Acute, 2/2 immobility, IS when able 4. Metabolic acidosis. Acute, 2/2 above, monitor 5. Suspected URI. Patient developing rhinorrhea, tender lymph nodes, sinus congestion -tx supportively w/ mucinex/anti-histamine/lozenge Diet - Reg Code - Full Ppx - SCDs Dispo - ADD uncertain, 12/02 Subjective: reporting less photophobia, more ambulation Objective: Vital Signs Temp Pulse Resp BP Pulse Ox 36.4 C 72 16 116/70 95 12/01/17 16:05 12/01/17 16:05 12/01/17 16:05 12/01/17 16:05 12/01/17 16:05 Laboratory Results 11/29/17 04:50 12/01/17 04:20 11/30/17 12/01/17 12/02/17 05:59 05:59 05:59 Intake Total 700 250 Balance 700 250 - Pending Discharge Pending Discharge Within 24 Hours: Yes Pending Discharge Date: 12/02/17 Pending Discharge Time: 11:00 - Physical Exam Constitutional: no apparent distress, appears nourished, not in pain, No uncomfortable Cardiovascular: regular rate and rhythym, no murmur, rub, or gallop, No edema Respiratory: no respiratory distress, no rales or rhonchi, clear to auscultation Neurologic: AAOx3, sensation intact bilaterally, CN II-XII Intact, No weakness Psychiatric: interacting appropriately, not anxious, not encephalopathic, thought process linear ICD10 Worksheet Patient Problems: Problems Problem Status Onset Encephalitis Acute Altered mental status Acute
[2017-12-01] MEDS: CETIRIZINE 10 MG TAB PO SCH (20:42)
[2017-12-01] MEDS: traZODone 100 MG TAB PO SCH ×2 (20:44→21:58)
[2017-12-02 09:07] VITALS: BP 111/66
[2017-12-02] MEDS: PANTOPRAZOLE SODIUM 40 MG TAB PO SCH (09:23)
[2017-12-02] MEDS: methylPREDNISolone SOD SUCC 1 GM in D5W 100 ML IV SCH (09:24)
[2017-12-02] MEDS: guaiFENesin 600 MG TAB.ER PO SCH (09:24)
--- NOTE | 2017-12-02 09:27 | NEUROPROG ---
Assessment: Today's 25 min unit time was predominantly counseling regarding her condition and management strategies moving forward. Off acyclovir for suspected autoimmune encephalitis. She is day 4/5 of IV solumedrol. Labs pending for diagnosis on CSF. If remains stable then she can complete last IV dose of steroid tomorrow afternoon and go home on PO and outpatient follow up with me. 12/02/17: OK to discharge on Prednisone 40mg po daily and call my office Tuesday for update. total unit time 15 minutes Objective: Vital Signs Temp Pulse Resp BP Pulse Ox 36.5 C 80 16 111/66 95 12/02/17 09:03 12/02/17 09:03 12/02/17 09:03 12/02/17 09:03 12/02/17 09:03 Laboratory Results 11/29/17 04:50 12/01/17 04:20 12/01/17 12/02/17 12/03/17 05:59 05:59 05:59 Intake Total 250 400 Balance 250 400 Allergies/Adverse Reactions: No Known Allergies Allergy (Verified 11/27/17 23:11)
--- NOTE | 2017-12-02 11:16 | ASMTLACE ---
[facility]ACE Length of stay for Answers: 4-6 days current admission Acuity / Level of Answers: Yes Care: Did the patient have an inpatient admission? 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
--- NOTE | 2017-12-02 11:19 | ASMTCMCOM ---
CM Note CM Note Notes: Chart reviewed. Per MD patient is medically clear for discharge to home. No needs identified CM available should needs arise. Plan: Home independently. Date Signed: 12/02/2017 11:18 AM Electronically Signed By:Mable Watson RN
--- NOTE | 2017-12-02 17:11 | PDDCSUM ---
Discharge Summary Discharge Summary: DISCHARGE SUMMARY FOLLOW-UP ITEMS: 1. NMDA receptor antibodies pending at time of discharge, paraneoplastic antibodies pending at time of discharge DATE OF ADMISSION: 11/27/2017 DATE OF DISCHARGE: 12/02/2017 DISCHARGE DIAGNOSES: 1. Acute NMDA receptor (autoimmune) encephalitis 2. Acute encephalopathy 3. Acute atelectasis 4. Acute metabolic acidosis 5. Suspected URI CONSULTATIONS: Neurology, Infectious Disease PROCEDURES / IMAGING: Lumbar puncture demonstrating high protein, low glucose, white blood cell count with lymphocyte predominance, negative HSV Abdominal ultrasound demonstrating no teratoma Head CT demonstrating no intracranial mass CHIEF COMPLAINT: Acute headache, confusion, agitation SUBJECTIVE: Patient is doing well at time of discharge, she currently has no headache, she is mentating at her baseline PHYSICAL EXAM ON DISCHARGE: Systolic blood pressure 110, heart rate 70, afebrile overnight, satting well on room air, alert awake oriented x3, no apparent distress, facial symmetry, pain level 0/10 LABS ON DISCHARGE: HIV test negative, creatinine 0.7 HOSPITAL COURSE BY PROBLEM: The patient presented with acute encephalopathy evidenced by severe agitation, disorientation, non directable behavior as well as a headache, secondary to acute inflammatory autoimmune encephalitis, believed to be secondary to NMDA receptor antibody. The patient had been experiencing an escalation in symptoms over the preceding week, and she has been treated supportively for headache without any improvement. Upon arrival, she required significant sedating medications and orders stabilize her symptoms, including a Precedex drip in the intensive care unit. She underwent lumbar puncture which demonstrated high protein, low glucose, lymphocyte predominant pleocytosis. She was empirically started on IV acyclovir and IV fluids until her HSV PCR was negative. Given that autoimmune inflammatory encephalitis was suspected to be the principal diagnosis, the patient was initiated on high-dose IV steroids including methylprednisolone 1 g daily. Her clinical condition substantially improved after initiation of the steroids. Since initiation, the patient's mental status has completely returned to her normal baseline. She has had a lingering headache which has been treated supportively with moderate dose nonsteroidal anti-inflammatories as well as Tylenol. The patient will continue these medications at home as well as an as-needed sleep aid given her ongoing steroid treatment. Dr. Jayjay Waldrop from Neurology has recommended discharging with prednisone 40 mg daily and he will reassess with the patient next week. The patient also began experiencing some URI symptoms during her hospital stay, and supportive care was recommended with Mucinex, and histamine comma lozenges. DISCHARGE MEDICATIONS: Please see official discharge medication reconciliation sheet in chart , prednisone 40 mg daily, trazodone as needed 100 mg at bedtime, Mucinex for the next 5 days, Zyrtec for the next 5 days. As needed ibuprofen and Tylenol. DISCHARGE INSTRUCTIONS: Please follow up with Dr. Jayjay Waldrop next week. TIME SPENT: Greater than 30 minutes were spent on direct patient care, as well as discharge planning and preparation.
== END 2017-12-02 12:24 | disposition home or self-care (01) | DRG 98 ==
LOC: F2N 11-28 01:03 → F1N 11-30 14:25
PROVIDERS: ADMIT Student in an Organized Health Care Education/Training Program; ATTEND Student in an Organized Health Care Education/Training Program
PROC: 009U3ZX Drainage of Spinal Canal, Percutaneous Approach, Diagnostic (ICD-10-PCS; principal; 2017-11-27)
DX: G04.81 Other encephalitis and encephalomyelitis (principal); E87.2 Acidosis; J06.9 Acute upper respiratory infection, unspecified
CPT/HCPCS: 80305; 83520-90; 86256-90; 96374; 97161-GP; 97165-GO; 97535-GO; G0480; J0133; J1200; J1630; J2060; J2930